=== PATIENT | female | born 2000 | race American Indian/Alaskan Native ===

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

== ENCOUNTER 2020-01-30 20:48 | Emergency (ER) | payer MEDICAID | END 2020-01-30 21:20 | disposition left against medical advice (07) | LOC: ED 20:48 | DX: R07.89 Other chest pain (principal); Z53.21 Procedure and treatment not carried out due to patient leaving prior to being seen by health care provider ==

== ENCOUNTER 2020-02-02 13:13 | Emergency (ER) | payer MEDICAID ==
[2020-02-02] MEDS ORDERED: ASPIRIN 325 MG TAB PO ONE (13:45)
[2020-02-02 14:19] LABS: Basophils # (Auto) 0.1 K/mm3 (0.0-0.1); Basophils % (Auto) 0.5 % (0.0-1.8); Eosinophils % (Auto) 0.4 % (0.0-4.3); Hematocrit 39.5 % (30.3-42.9); Hemoglobin 13.3 gm/dl (10.1-14.3); Lymphocytes # (Auto) 1.8 K/mm3 (1.2-5.4); Lymphocytes % (Auto) 16.8 % (13.4-35.0); Mean Corpuscular HGB Conc 34 % (30-34); Mean Corpuscular Volume 87 fl (79-97); Monocytes # (Auto) 0.9 K/mm3 (0.0-0.8); Monocytes % (Auto) 8.4 % (0.0-7.3); Platelet Count 422 K/mm3 (140-440); Red Blood Count 4.53 M/mm3 (3.65-5.03); Red Cell Distribution Width 15.1 % (13.2-15.2)
[2020-02-02 14:39] LABS: Blood Urea Nitrogen 4 mg/dL (7-17); Calcium 9.9 mg/dL (8.4-10.2); Hemolysis Index 6
[2020-02-02 14:47] LABS: Amphetamine Screen,Urine Negative; Bacteria,Urine 1+ /HPF (Negative); Benzodiazepines Screen,Urine Negative; Bilirubin,Urine NEG (Negative); Blood,Urine NEG (Negative); Cocaine Screen,Urine Negative; Color,Urine Amber (Yellow); Methadone Screen,Urine Negative; Mucus,Urine 3+ /HPF; Opiate Screen,Urine Negative
[2020-02-02 14:54] LABS: BUN/Creatinine Ratio 10
[2020-02-02 14:59] LABS: Cannabinoid Screen,Urine Positive
--- NOTE | 2020-02-02 15:14 | Emergency Department Report ---
[facility] <NESSA BOYCE - Last Filed: 02/02/20 22:51> - [facility] HPI: Room 18 The patient is a 19-year-old female present with a chief complaint of suicidal ideation chest pain and menorrhagia. The patient states she has had a intermittent chest pain for 2 years. Patient states she was told it was GERD. Patient states she has had pain on her right shoulder and neck for approximate 1 week. Patient denies any recent trauma. Patient states she has had pelvic cramping and this months she has had 3 episodes of vaginal bleeding. Patient is having delivered 07/24/2019. The patient is not breast-feeding. The patient states she has had suicidal ideation throughout her . The patient states last month she cut her arm and chest and yesterday she contemplated overdosing on Tylenol <BASIA CROWLEY - Last Filed: 02/03/20 19:33> - General Chief Complaint: Chest Pain Time Seen by Provider: 02/02/20 14:46 ED Past Medical Hx <NESSA BOYCE - Last Filed: 02/02/20 22:51> - Past Medical History Hx GERD: Yes Hx Psychiatric Treatment: (anxiety) Additional medical history: HEART MURMUR - Surgical History Past Surgical History?: No - Family History Family history: no significant - Social History Smoking Status: Never Smoker Substance Use Type: None (Denies illicit drug use) <BASIA CROWLEY - Last Filed: 02/03/20 19:33> - Medications Home Medications: Home Medications Medication Instructions Recorded Confirmed Last Taken Type No Known Home Medications [No 02/02/20 02/02/20 Unknown History Reported Home Medications] ED Review of Systems ROS: Stated complaint: N/V/BODY PAIN/CP/BLEEDING Other details as noted in HPI <NESSA BOYCE - Last Filed: 02/02/20 22:51> ROS: Stated complaint: N/V/BODY PAIN/CP/BLEEDING Other details as noted in HPI Constitutional: no symptoms reported Respiratory: no symptoms reported Cardiovascular: chest pain Endocrine: no symptoms reported Genitourinary: abnormal menses Psychiatric: suicidal thoughts <BASIA CROWLEY - Last Filed: 02/03/20 19:33> Physical Exam - Physical Exam Vital Signs: Vital Signs 02/02/20 13:37 Temperature 98.9 F Pulse Rate 109 H Respiratory 15 Rate Blood Pressure 139/93 O2 Sat by Pulse 100 Oximetry <NESSA BOYCE - Last Filed: 02/02/20 22:51> - Physical Exam Physical Exam: GENERAL: The patient is well-developed well-nourished female sitting on stretcher not appearing to be in acute distress. [] HEENT: Normocephalic. Atraumatic. Extraocular motions are intact. Patient has moist mucous membranes. NECK: Supple. Trachea midline CHEST/LUNGS: Clear to auscultation. There is no respiratory distress noted. HEART/CARDIOVASCULAR: Regular. There is no tachycardia. There is no gallop rub or murmur. ABDOMEN: Abdomen is soft, nontender. Patient has normal bowel sounds. There is no abdominal distention. SKIN: There is no rash. There is no edema. There is no diaphoresis. NEURO: The patient is awake, alert, and oriented. The patient is cooperative. The patient has normal speech MUSCULOSKELETAL: There is no evidence of acute injury. <BASIA CROWLEY - Last Filed: 02/03/20 19:33> ED Course Vital Signs 02/02/20 13:37 Temperature 98.9 F Pulse Rate 109 H Respiratory 15 Rate Blood Pressure 139/93 O2 Sat by Pulse 100 Oximetry <NESSA BOYCE - Last Filed: 02/02/20 22:51> - EJ/Peripheral Line Neck L Time Out Performed: Yes Indications: nurses unable to establis Skin Cleansed in Sterile Fashion: Yes Size: 20 Dressing Placed: Tegaderm Patient Tolerated Procedure: no complications <BASIA CROWLEY - Last Filed: 02/03/20 19:33> ED Medical Decision Making - Lab Data Result diagrams: 02/02/20 13:57 02/02/20 13:57 - Radiology Data NUCLEAR MEDICINE PERFUSION ONLY LUNG SCAN History: Chest pain Comparison: No prior nuclear medicine lung scan. Prior chest radiograph dated 02/02/2020. Procedure: The patient was administered 5.0 mCi of technetium 99m labeled MAA intravenously. Findings: No focal segmental defects are seen on perfusion imaging. Impression: Low probability for pulmonary embolism. - Medical Decision Making Patient signed out to me by Dr. Crowley that patient is medically clear pending V/Q examination. V/Q shows low probability for pulmonary embolism. Transfer form signed so that patient may go to inpatient psych facility. <BOYCENESSA Tiffanie - Last Filed: 02/02/20 22:51> - Lab Data Result diagrams: 02/02/20 13:57 02/02/20 13:57 Laboratory Tests 02/02/20 02/02/20 02/02/20 13:57 13:57 13:57 WBC 11.0 RBC 4.53 Hgb 13.3 Hct 39.5 MCV 87 MCH 29 MCHC 34 RDW 15.1 Plt Count 422 Lymph % (Auto) 16.8 [place] % (Auto) 8.4 H Eos % (Auto) 0.4 Baso % (Auto) 0.5 Lymph # (Auto) 1.8 [place] # (Auto) 0.9 H Eos # (Auto) 0.0 Baso # (Auto) 0.1 Seg Neutrophils % 73.9 H Seg Neutrophils # 8.1 H D-Dimer Sodium Potassium Chloride Carbon Dioxide Anion Gap BUN Creatinine Estimated GFR BUN/Creatinine Ratio Glucose Calcium Troponin T HCG, Quant Urine Color Urine Turbidity Urine pH Ur Specific [place] Urine Protein Urine Glucose (UA) Urine Ketones Urine Blood Urine Nitrite Urine Bilirubin Urine Urobilinogen Ur Leukocyte Esterase Urine WBC (Auto) Urine RBC (Auto) U Epithel Cells (Auto) Urine Bacteria (Auto) Urine Mucus Salicylates < 0.3 L Urine Opiates Screen Urine Methadone Screen Acetaminophen 5.0 L Ur Barbiturates Screen Ur Phencyclidine Scrn Ur Amphetamines Screen U Benzodiazepines Scrn Urine Cocaine Screen U Marijuana (THC) Screen Drugs of Abuse Note Plasma/Serum Alcohol 02/02/20 02/02/20 02/02/20 13:57 13:57 14:16 WBC RBC Hgb Hct MCV MCH MCHC RDW Plt Count Lymph % (Auto) [place] % (Auto) Eos % (Auto) Baso % (Auto) Lymph # (Auto) [place] # (Auto) Eos # (Auto) Baso # (Auto) Seg Neutrophils % Seg Neutrophils # D-Dimer Sodium 136 L Potassium 4.8 Chloride 96.7 L Carbon Dioxide 26 Anion Gap 18 BUN 4 L Creatinine 0.4 L Estimated GFR > 60 BUN/Creatinine Ratio 10 Glucose 96 Calcium 9.9 Troponin T < 0.010 HCG, Quant Urine Color Christine Urine Turbidity Clear Urine pH 6.0 Ur Specific [place] 1.027 Urine Protein 100 mg/dl Urine Glucose (UA) Neg Urine Ketones 80 Urine Blood Neg Urine Nitrite Neg Urine Bilirubin Neg Urine Urobilinogen 4.0 Ur Leukocyte Esterase Neg Urine WBC (Auto) 5.0 Urine RBC (Auto) 2.0 U Epithel Cells (Auto) 1.0 Urine Bacteria (Auto) 1+ Urine Mucus 3+ Salicylates Urine Opiates Screen Urine Methadone Screen Acetaminophen Ur Barbiturates Screen Ur Phencyclidine Scrn Ur Amphetamines Screen U Benzodiazepines Scrn Urine Cocaine Screen U Marijuana (THC) Screen Drugs of Abuse Note Plasma/Serum Alcohol < 0.01 02/02/20 02/02/20 02/02/20 14:16 15:09 15:09 WBC RBC Hgb Hct MCV MCH MCHC RDW Plt Count Lymph % (Auto) [place] % (Auto) Eos % (Auto) Baso % (Auto) Lymph # (Auto) [place] # (Auto) Eos # (Auto) Baso # (Auto) Seg Neutrophils % Seg Neutrophils # D-Dimer 755.70 H Sodium Potassium Chloride Carbon Dioxide Anion Gap BUN Creatinine Estimated GFR BUN/Creatinine Ratio Glucose Calcium Troponin T HCG, Quant < 2 Urine Color Urine Turbidity Urine pH Ur Specific [place] Urine Protein Urine Glucose (UA) Urine Ketones Urine Blood Urine Nitrite Urine Bilirubin Urine Urobilinogen Ur Leukocyte Esterase Urine WBC (Auto) Urine RBC (Auto) U Epithel Cells (Auto) Urine Bacteria (Auto) Urine Mucus Salicylates Urine Opiates Screen Negative Urine Methadone Screen Negative Acetaminophen Ur Barbiturates Screen Negative Ur Phencyclidine Scrn Negative Ur Amphetamines Screen Negative U Benzodiazepines Scrn Negative Urine Cocaine Screen Negative U Marijuana (THC) Screen Positive Drugs of Abuse Note Disclamer Plasma/Serum Alcohol 02/02/20 16:06 WBC RBC Hgb Hct MCV MCH MCHC RDW Plt Count Lymph % (Auto) [place] % (Auto) Eos % (Auto) Baso % (Auto) Lymph # (Auto) [place] # (Auto) Eos # (Auto) Baso # (Auto) Seg Neutrophils % Seg Neutrophils # D-Dimer Sodium Potassium Chloride Carbon Dioxide Anion Gap BUN Creatinine Estimated GFR BUN/Creatinine Ratio Glucose Calcium Troponin T < 0.010 HCG, Quant Urine Color Urine Turbidity Urine pH Ur Specific [place] Urine Protein Urine Glucose (UA) Urine Ketones Urine Blood Urine Nitrite Urine Bilirubin Urine Urobilinogen Ur Leukocyte Esterase Urine WBC (Auto) Urine RBC (Auto) U Epithel Cells (Auto) Urine Bacteria (Auto) Urine Mucus Salicylates Urine Opiates Screen Urine Methadone Screen Acetaminophen Ur Barbiturates Screen Ur Phencyclidine Scrn Ur Amphetamines Screen U Benzodiazepines Scrn Urine Cocaine Screen U Marijuana (THC) Screen Drugs of Abuse Note Plasma/Serum Alcohol - EKG Data -: EKG Interpreted by Me EKG shows normal: sinus rhythm Rate: normal - EKG Data When compared to previous EKG there are: no significant change, previous EKG unavailable Interpretation: unchanged when compared t (06/14/2019) - Radiology Data Radiology results: report reviewed (Pelvic ultrasound, chest x-ray), image reviewed (Pelvic ultrasound, chest x-ray) interpreted by me: Chest x-ray-no focal infiltrates, no pneumothorax Findings [address] [address] Ultrasound Report Signed Patient: SALLY BELL MR#: [id number] : 2000 Acct:[id number] Age/Sex: 19 / F ADM Date: 02/02/20 Loc: ED Atte nding Dr: Ordering Physician: BASIA CROWLEY MD Date of Service: 02/02/20 Procedure(s): US pelvic complete Accession Number(s): [id number] cc: BASIA CROWLEY MD US pelvic complete INDICATION / CLINICAL INFORMATION: Irregular vaginal bleeding. COMPARISON: None available. FINDINGS: Uterus and both ovaries appear negative. Endometrial stripe measures 6 mm in thickness. No free fluid. IMPRESSION: 1. No significant abnormality. Signer Name: Rc Siddiqui MD Signed: 02/02/2020 7:10 PM Workstation Name: [id number] Transcribed By: TM Dictated By: Rc Siddiqui MD Electronically Authenticated By: Rc Siddiqui MD Signed Date/Time: 02/02/201909 DD/ 08 TD/TT: Findings [address] [address] XRay Report Signed Patient: SALLY BELL MR#: [id number] : 2000 Acct:[id number] Age/Sex: 19 / F ADM Date: 02/02/20 Loc: ED Attending Dr: Ordering Physician: BASIA CROWLEY MD Date of Service: 02/02/20 Procedure(s): XR chest 1V ap Accession Number(s): [id number] cc: BASIA CROWLEY MD Fluoro Time In Minutes: CHEST 1 VIEW 02/02/2020 3:38 PM INDICATION / CLINICAL INFORMATION: Chest Pain. COMPARISON: 07/24/19 FINDINGS: SUPPORT DEVICES: None. HEART / MEDIASTINUM: No significant abnormality. LUNGS / PLEURA: No significant pulmonary or pleural abnormality. No pneumothorax. ADDITIONAL FINDINGS: No significant additional findings. IMPRESSION: 1. No acute findings. Signer Name: Mariel Barrow MD Signed: 02/02/2020 4:40 PM Workstation Name: [id number] Transcribed By: DT Dictated By: Greg Barrow MD Electronically Authenticated By: Greg Barrow MD Signed Date/Time: 02/02/201639 DD/ 39 TD/TT: - Differential Diagnosis Suicidal ideation, GERD, pericarditis, PE <BASIA CROWLEY K - Last Filed: 02/03/20 19:33> Critical care attestation.: If time is entered above; I have spent that time in minutes in the direct care of this critically ill patient, excluding procedure time. <NESSA BOYCE - Last Filed: 02/02/20 22:51> Critical care attestation.: If time is entered above; I have spent that time in minutes in the direct care of this critically ill patient, excluding procedure time. <BASIA CROWLEY - Last Filed: 02/03/20 19:33> ED Disposition <NESSA BOYCE - Last Filed: 02/02/20 22:51> Is pt being admited?: No Does the pt Need Aspirin: No <BASIA CROWLEY - Last Filed: 02/03/20 19:33> Clinical Impression: Suicidal ideation Disposition: DC/[facility]/PSY UNIT Condition: Stable Referrals: LEWIS SHAHID MD [Primary Care Provider] - 3-5 Days
--- NOTE | 2020-02-02 16:45 | XRay Report ---
CHEST 1 VIEW 02/02/2020 3:38 PM INDICATION / CLINICAL INFORMATION: Chest Pain. COMPARISON: 07/24/19 FINDINGS: SUPPORT DEVICES: None. HEART / MEDIASTINUM: No significant abnormality. LUNGS / PLEURA: No significant pulmonary or pleural abnormality. No pneumothorax. ADDITIONAL FINDINGS: No significant additional findings. IMPRESSION: 1. No acute findings. Signer Name: Mariel Barrow MD Signed: 02/02/2020 4:40 PM Workstation Name: [id number]
--- NOTE | 2020-02-02 19:15 | Ultrasound Report ---
US pelvic complete INDICATION / CLINICAL INFORMATION: Irregular vaginal bleeding. COMPARISON: None available. FINDINGS: Uterus and both ovaries appear negative. Endometrial stripe measures 6 mm in thickness. No free fluid . IMPRESSION: 1. No significant abnormality. Signer Name: Rc Siddiqui MD Signed: 02/02/2020 7:10 PM Workstation Name: [id number]
[2020-02-02 20:55] VITALS: BP 139/93
--- NOTE | 2020-02-02 22:17 | Nuclear Medicine Report ---
NUCLEAR MEDICINE PERFUSION ONLY LUNG SCAN History: Chest pain Comparison: No prior nuclear medicine lung scan. Prior chest radiograph dated 02/02/2020. Procedure: The patient was administered 5.0 mCi of technetium 99m labeled MAA intravenously. Findings: No focal segmental defects are seen on perfusion imaging. Impression: Low probability for pulmonary embolism. Signer Name: Jac Ribera MD Signed: 02/02/2020 10:13 PM Workstation Name: [id number]
== END 2020-02-03 00:10 ==
LOC: ED 13:13
DX: R45.851 Suicidal ideations (principal); R07.89 Other chest pain; K21.9 Gastro-esophageal reflux disease without esophagitis; F41.9 Anxiety disorder, unspecified
CPT/HCPCS: 36415; 36556; 71045; 76856; 78580; 80048; 80307; 81001; 84484; 84702; 85025; 85379; 93005; 99285; A9540; 80320; G0480

== ENCOUNTER 2020-07-21 18:01 | Emergency (ER) | payer MEDICAID ==
[2020-07-21] MEDS ORDERED: LORazepam 1 MG TAB PO ONE (18:15)
--- NOTE | 2020-07-21 18:27 | Event Note ---
ED Screening Note Date of service: 07/21/20 Time: 18:26 ED Screening Note: Patient presents with complaints of anxiety and hearing voices today Denies SI/HI Patient nervous and shaking in triage Actively crying This initial assessment/diagnostic orders/clinical plan/treatment(s) is/are subject to change based on patients health status, clinical progression and re- assessment by fellow clinical providers in the ED. Further treatment and workup at subsequent clinical providers discretion. Patient/guardian urged not to elope from the ED as their condition may be serious if not clinically assessed and managed. Initial orders include: Ativan p.o. given Labs Mental health eval
[2020-07-21 19:05] LABS: Bacteria,Urine 2+ /HPF (Negative); Bilirubin,Urine NEG (Negative); Blood,Urine NEG (Negative); Color,Urine Yellow (Yellow); Mucus,Urine 3+ /HPF
[2020-07-21 19:13] LABS: Amphetamine Screen,Urine Negative; Benzodiazepines Screen,Urine Negative; Cocaine Screen,Urine Negative; Methadone Screen,Urine Negative; Opiate Screen,Urine Negative
[2020-07-21 19:14] LABS: Basophils # (Auto) 0.1 K/mm3 (0.0-0.1); Basophils % (Auto) 0.8 % (0.0-1.8); Eosinophils % (Auto) 0.2 % (0.0-4.3); Hematocrit 45.8 % (30.3-42.9); Hemoglobin 15.1 gm/dl (10.1-14.3); Lymphocytes # (Auto) 2.1 K/mm3 (1.2-5.4); Lymphocytes % (Auto) 20.4 % (13.4-35.0); Mean Corpuscular HGB Conc 33 % (30-34); Mean Corpuscular Volume 92 fl (79-97); Monocytes # (Auto) 0.6 K/mm3 (0.0-0.8); Platelet Count 300 K/mm3 (140-440); Red Cell Distribution Width 14.8 % (13.2-15.2)
[2020-07-21 19:24] LABS: Alanine Aminotransferase 11 units/L (7-56); Albumin 4.7 g/dL (3.9-5); Blood Urea Nitrogen 6 mg/dL (7-17); Hemolysis Index 14
[2020-07-21 19:25] LABS: Cannabinoid Screen,Urine Positive
[2020-07-21 19:26] LABS: BUN/Creatinine Ratio 12
[2020-07-22 01:04] VITALS: BP 118/77
--- NOTE | 2020-07-22 01:22 | Emergency Department Report ---
ED General Adult HPI - General Chief complaint: Psych Stated complaint: DEPRESSION Time Seen by Provider: 07/21/20 18:10 Source: patient Mode of arrival: Ambulatory Limitations: No Limitations - History of Present Illness Initial comments: The patient presents to the emergency department with a chief complaint of depression as well as panic attacks. Patient states that she has been severely depressed over the last year since the of her son on July. Patient states during her she was taking medications for anxiety and depression but has not taken medication since his . Patient states that she is having panic attacks almost daily and feels like she is going to when she is having them. Patient states she is also hearing voices and initially states the voices have only been present for the last week but upon further discussion the voices have been present for quite some time. She states the voices are telling her mean things such as shut up, you are stupid, with the hell are you doing with herself. Patient denies suicidal homicidal ideations. Patient also complains about visual hallucinations as well but is very reluctant to discuss them with me. Otherwise the patient is very pleasant and very fo rthcoming. -: Gradual Severity scale (0 -10): 0 Consistency: constant Improves with: none Worsens with: none Associated Symptoms: denies other symptoms Treatments Prior to Arrival: none - Related Data Home Medications Medication Instructions Recorded Confirmed Last Taken No Known Home Medications [No 02/02/20 02/02/20 Unknown Reported Home Medications] Allergies Allergy/AdvReac Type Severity Reaction Status Date / Time No Known Allergies Allergy Verified 07/21/20 18:17 ED Review of Systems ROS: Stated complaint: DEPRESSION Other details as noted in HPI Comment: All other systems reviewed and negative Constitutional: denies: chills, fever Eyes: denies: eye pain, eye discharge, vision change ENT: denies: ear pain, throat pain Respiratory: denies: cough, shortness of breath, wheezing Cardiovascular: denies: chest pain, palpitations Endocrine: no symptoms reported Gastrointestinal: denies: abdominal pain, nausea, diarrhea Genitourinary: denies: urgency, dysuria, discharge Musculoskeletal: denies: back pain, joint swelling, arthralgia Skin: denies: rash, lesions Neurological: denies: headache, weakness, paresthesias Psychiatric: depression, auditory hallucinations, visual hallucinations. denies: anxiety, homicidal thoughts, suicidal thoughts Hematological/Lymphatic: denies: easy bleeding, easy bruising ED Past Medical Hx - Past Medical History Hx GERD: Yes Hx Renal Disease: No Hx Sickle Cell Disease: No Hx Seizures: No Hx Psychiatric Treatment: (anxiety) Additional medical history: HEART MURMUR - Social History Smoking Status: Never Smoker Substance Use Type: None - Medications Home Medications: Home Medications Medication Instructions Recorded Confirmed Last Taken Type No Known Home Medications [No 02/02/20 02/02/20 Unknown History Reported Home Medications] ED Physical Exam - General Limitations: No Limitations General appearance: alert, in no apparent distress - Head Head exam: Present: atraumatic, normocephalic - Eye Eye exam: Present: normal appearance, PERRL, EOMI - ENT ENT exam: Present: mucous membranes moist - Neck Neck exam: Present: normal inspection - Respiratory Respiratory exam: Present: normal lung sounds bilaterally. Absent: respiratory distress - Cardiovascular Cardiovascular Exam: Present: regular rate, normal rhythm. Absent: systolic murmur, diastolic murmur, rubs, gallop - GI/Abdominal GI/Abdominal exam: Present: soft, normal bowel sounds. Absent: distended, tenderness - Extremities Exam Extremities exam: Present: normal inspection - Back Exam Back exam: Present: normal inspection - Neurological Exam Neurological exam: Present: alert, oriented X3, CN II-XII intact. Absent: motor sensory deficit - Psychiatric Psychiatric exam: Present: depressed, flat affect - Skin Skin exam: Present: warm, dry, intact, normal color. Absent: rash ED Course Vital Signs 07/22/20 07/22/20 07/22/20 00:31 00:32 01:03 Temperature 98.5 F 98.5 F Pulse Rate 75 77 Respiratory 16 16 17 Rate Blood Pressure 118/76 118/77 [Left] O2 Sat by Pulse 97 97 98 Oximetry ED Medical Decision Making - Lab Data Result diagrams: 07/21/20 18:33 07/21/20 18:33 Lab Results 07/21/20 07/21/20 07/21/20 Range/Units 18:33 18:33 18:33 WBC 10.1 (4.5-11.0) K/mm3 RBC 5.00 (3.65-5.03) M/mm3 Hgb 15.1 H (10.1-14.3) gm/dl Hct 45.8 H (30.3-42.9) % MCV 92 (79-97) fl MCH 30 (28-32) pg MCHC 33 (30-34) % RDW 14.8 (13.2-15.2) % Plt Count 300 (140-440) K/mm3 Lymph % (Auto) 20.4 (13.4-35.0) % [place] % (Auto) 6.0 (0.0-7.3) % Eos % (Auto) 0.2 (0.0-4.3) % Baso % (Auto) 0.8 (0.0-1.8) % Lymph # (Auto) 2.1 (1.2-5.4) K/mm3 [place] # (Auto) 0.6 (0.0-0.8) K/mm3 Eos # (Auto) 0.0 (0.0-0.4) K/mm3 Baso # (Auto) 0.1 (0.0-0.1) K/mm3 Seg Neutrophils % 72.6 H (40.0-70.0) % Seg Neutrophils # 7.3 (1.8-7.7) K/mm3 Sodium 137 (137-145) mmol/L Potassium 3.8 (3.6-5.0) mmol/L Chloride 100.9 (98-107) mmol/L Carbon Dioxide 24 (22-30) mmol/L Anion Gap 16 mmol/L BUN 6 L (7-17) mg/dL Creatinine 0.5 L (0.6-1.2) mg/dL Estimated GFR > 60 ml/min BUN/Creatinine Ratio 12 % Glucose 108 H (65-100) mg/dL Calcium 10.0 (8.4-10.2) mg/dL Total Bilirubin 0.60 (0.1-1.2) mg/dL AST 19 (5-40) units/L ALT 11 (7-56) units/L Alkaline Phosphatase 69 (35-129) units/L Total Protein 7.9 (6.3-8.2) g/dL Albumin 4.7 (3.9-5) g/dL Albumin/Globulin Ratio 1.5 % HCG, Qual (Negative) Urine Color (Yellow) Urine Turbidity (Clear) Urine pH (5.0-7.0) Ur Specific [place] (1.003-1.030) Urine Protein (Negative) mg/dL Urine Glucose (UA) (Negative) mg/dL Urine Ketones (Negative) mg/dL Urine Blood (Negative) Urine Nitrite (Negative) Urine Bilirubin (Negative) Urine Urobilinogen (<2.0) mg/dL Ur Leukocyte Esterase (Negative) Urine WBC (Auto) (0.0-6.0) /HPF Urine RBC (Auto) (0.0-6.0) /HPF U Epithel Cells (Auto) (0-13.0) /HPF Urine Bacteria (Auto) (Negative) /HPF Urine Mucus /HPF Salicylates < 0.3 L (2.8-20.0) mg/dL Urine Opiates Screen Urine Methadone Screen Acetaminophen (10.0-30.0) ug/mL Ur Barbiturates Screen Ur Phencyclidine Scrn Ur Amphetamines Screen U Benzodiazepines Scrn Urine Cocaine Screen U Marijuana (THC) Screen Drugs of Abuse Note Plasma/Serum Alcohol (0-0.07) % 07/21/20 07/21/20 07/21/20 Range/Units 18:33 18:33 18:33 WBC (4.5-11.0) K/mm3 RBC (3.65-5.03) M/mm3 Hgb (10.1-14.3) gm/dl Hct (30.3-42.9) % MCV (79-97) fl MCH (28-32) pg MCHC (30-34) % RDW (13.2-15.2) % Plt Count (140-440) K/mm3 Lymph % (Auto) (13.4-35.0) % [place] % (Auto) (0.0-7.3) % Eos % (Auto) (0.0-4.3) % Baso % (Auto) (0.0-1.8) % Lymph # (Auto) (1.2-5.4) K/mm3 [place] # (Auto) (0.0-0.8) K/mm3 Eos # (Auto) (0.0-0.4) K/mm3 Baso # (Auto) (0.0-0.1) K/mm3 Seg Neutrophils % (40.0-70.0) % Seg Neutrophils # (1.8-7.7) K/mm3 Sodium (137-145) mmol/L Potassium (3.6-5.0) mmol/L Chloride (98-107) mmol/L Carbon Dioxide (22-30) mmol/L Anion Gap mmol/L BUN (7-17) mg/dL Creatinine (0.6-1.2) mg/dL Estimated GFR ml/min BUN/Creatinine Ratio % Glucose (65-100) mg/dL Calcium (8.4-10.2) mg/dL Total Bilirubin (0.1-1.2) mg/dL AST (5-40) units/L ALT (7-56) units/L Alkaline Phosphatase (35-129) units/L Total Protein (6.3-8.2) g/dL Albumin (3.9-5) g/dL Albumin/Globulin Ratio % HCG, Qual Negative (Negative) Urine Color (Yellow) Urine Turbidity (Clear) Urine pH (5.0-7.0) Ur Specific [place] (1.003-1.030) Urine Protein (Negative) mg/dL Urine Glucose (UA) (Negative) mg/dL Urine Ketones (Negative) mg/dL Urine Blood (Negative) Urine Nitrite (Negative) Urine Bilirubin (Negative) Urine Urobilinogen (<2.0) mg/dL Ur Leukocyte Esterase (Negative) Urine WBC (Auto) (0.0-6.0) /HPF Urine RBC (Auto) (0.0-6.0) /HPF U Epithel Cells (Auto) (0-13.0) /HPF Urine Bacteria (Auto) (Negative) /HPF Urine Mucus /HPF Salicylates (2.8-20.0) mg/dL Urine Opiates Screen Urine Methadone Screen Acetaminophen 5.0 L (10.0-30.0) ug/mL Ur Barbiturates Screen Ur Phencyclidine Scrn Ur Amphetamines Screen U Benzodiazepines Scrn Urine Cocaine Screen U Marijuana (THC) Screen Drugs of Abuse Note Plasma/Serum Alcohol < 0.01 (0-0.07) % 07/21/20 07/21/20 Range/Units Unknown Unknown WBC (4.5-11.0) K/mm3 RBC (3.65-5.03) M/mm3 Hgb (10.1-14.3) gm/dl Hct (30.3-42.9) % MCV (79-97) fl MCH (28-32) pg MCHC (30-34) % RDW (13.2-15.2) % Plt Count (140-440) K/mm3 Lymph % (Auto) (13.4-35.0) % [place] % (Auto) (0.0-7.3) % Eos % (Auto) (0.0-4.3) % Baso % (Auto) (0.0-1.8) % Lymph # (Auto) (1.2-5.4) K/mm3 [place] # (Auto) (0.0-0.8) K/mm3 Eos # (Auto) (0.0-0.4) K/mm3 Baso # (Auto) (0.0-0.1) K/mm3 Seg Neutrophils % (40.0-70.0) % Seg Neutrophils # (1.8-7.7) K/mm3 Sodium (137-145) mmol/L Potassium (3.6-5.0) mmol/L Chloride (98-107) mmol/L Carbon Dioxide (22-30) mmol/L Anion Gap mmol/L BUN (7-17) mg/dL Creatinine (0.6-1.2) mg/dL Estimated GFR ml/min BUN/Creatinine Ratio % Glucose (65-100) mg/dL Calcium (8.4-10.2) mg/dL Total Bilirubin (0.1-1.2) mg/dL AST (5-40) units/L ALT (7-56) units/L Alkaline Phosphatase (35-129) units/L Total Protein (6.3-8.2) g/dL Albumin (3.9-5) g/dL Albumin/Globulin Ratio % HCG, Qual (Negative) Urine Color Yellow (Yellow) Urine Turbidity Slightly-cloudy (Clear) Urine pH 6.0 (5.0-7.0) Ur Specific [place] 1.023 (1.003-1.030) Urine Protein 30 mg/dl (Negative) mg/dL Urine Glucose (UA) Neg (Negative) mg/dL Urine Ketones 20 (Negative) mg/dL Urine Blood Neg (Negative) Urine Nitrite Neg (Negative) Urine Bilirubin Neg (Negative) Urine Urobilinogen 4.0 (<2.0) mg/dL Ur Leukocyte Esterase Tr (Negative) Urine WBC (Auto) 3.0 (0.0-6.0) /HPF Urine RBC (Auto) 6.0 (0.0-6.0) /HPF U Epithel Cells (Auto) 14.0 H (0-13.0) /HPF Urine Bacteria (Auto) 2+ (Negative) /HPF Urine Mucus 3+ /HPF Salicylates (2.8-20.0) mg/dL Urine Opiates Screen Negative Urine Methadone Screen Negative Acetaminophen (10.0-30.0) ug/mL Ur Barbiturates Screen Negative Ur Phencyclidine Scrn Negative Ur Amphetamines Screen Negative U Benzodiazepines Scrn Negative Urine Cocaine Screen Negative U Marijuana (THC) Screen Positive Drugs of Abuse Note Disclamer Plasma/Serum Alcohol (0-0.07) % - Medical Decision Making Patient is medically clear ED hold place Awaiting mental health evaluation Critical care attestation.: If time is entered above; I have spent that time in minutes in the direct care of this critically ill patient, excluding procedure time. ED Disposition Clinical Impression: Depression, Anxiety, Auditory hallucination Disposition: DC/TX-65 PSY HOSP/PSY UNIT Is pt being admited?: No Does the pt Need Aspirin: No Condition: Stable Referrals: PRIMARY CARE, [Primary Care Provider] - 3-5 Days
== END 2020-07-22 01:45 ==
LOC: ED 18:01
DX: F41.9 Anxiety disorder, unspecified (principal); F32.9 Major depressive disorder, single episode, unspecified; R44.0 Auditory hallucinations; K21.9 Gastro-esophageal reflux disease without esophagitis
CPT/HCPCS: 36415; 80053; 80307; 80320; 81001; 84703; 85025; G0480

== ENCOUNTER 2021-08-07 12:25 | Emergency (ER) | payer MEDICAID ==
[2021-08-07 14:47] VITALS: BP 122/85
[2021-08-07] MEDS ORDERED: diphenhydrAMINE 50 MG/ML VIAL IV ONE (16:29)
[2021-08-07] MEDS ORDERED: SODIUM CHLORIDE 0.9% 1000 ML 1,000 ML IV ONE (16:29)
[2021-08-07] MEDS ORDERED: METOCLOPRAMIDE 10 MG/2 ML INJ IV ONE (16:29)
[2021-08-07 17:10] LABS: Bilirubin,Urine NEG (Negative); Blood,Urine NEG (Negative); Color,Urine Yellow (Yellow); Mucus,Urine FEW /HPF; Protein,Urine <15 mg/dL mg/dL (Negative)
[2021-08-07 17:21] LABS: Alanine Aminotransferase 24 units/L (7-56); Albumin 4.4 g/dL (3.9-5); Blood Urea Nitrogen 4 mg/dL (7-17); Calcium 9.2 mg/dL (8.4-10.2); Hemolysis Index 7
[2021-08-07 17:22] LABS: BUN/Creatinine Ratio 10
[2021-08-07 17:39] LABS: Basophils % (Auto) 0.3 % (0.0-1.8); Eosinophils % (Auto) 0.2 % (0.0-4.3); Hematocrit 41.1 % (30.3-42.9); Hemoglobin 14.4 gm/dl (10.1-14.3); Lymphocytes # (Auto) 1.6 K/mm3 (1.2-5.4); Lymphocytes % (Auto) 16.7 % (13.4-35.0); Mean Corpuscular HGB Conc 35 % (30-34); Mean Corpuscular Volume 89 fl (79-97); Monocytes # (Auto) 0.5 K/mm3 (0.0-0.8); Monocytes % (Auto) 5.7 % (0.0-7.3); Platelet Count 302 K/mm3 (140-440); Red Blood Count 4.62 M/mm3 (3.65-5.03); Red Cell Distribution Width 13.8 % (13.2-15.2)
--- NOTE | 2021-08-07 19:43 | Ultrasound Report ---
US OB <= 14 weeks fetus INDICATION / CLINICAL INFORMATION: , n/v, 1st ultrasound. TECHNIQUE: Transabdominal. COMPARISON: None available. FINDINGS: UTERUS: Appears within normal limits. GESTATIONAL SAC: Well-defined oval shape and intrauterine in location. EMBRYO/FETUS: - Crump-Rump Length = 0.25 cm - Heart Rate, beats per minute (if present) = 102 beats per minute ADNEXA: No significant abnormality. FREE FLUID: None. ADDITIONAL FINDINGS: None. IMPRESSION: 1. Single, living intrauterine with estimated sonographic age of 5 weeks 6 days. Signer Name: Gurjit Banegas MD Signed: 08/07/2021 7:39 PM Workstation Name: [id number]
--- NOTE | 2021-08-07 19:56 | Emergency Department Report ---
ED N/V/D HPI - General Chief complaint: Nausea/Vomiting/Diarrhea Stated complaint: NOT FEELING GOOD Time Seen by Provider: 08/07/21 16:20 Source: patient Mode of arrival: Ambulatory Limitations: No Limitations - History of Present Illness Initial comments: Patient is a 21-year-old female presents emergency room complaints of nausea, vomiting, diarrhea that began 3 days ago. She denies any abdominal pain, back pain, vaginal bleeding, dysuria, hematuria, hematochezia, melena, hematemesis. She reports that she took [id number] test and states it was positive. She states her last menstrual cycle was June 26, 2021. She has not seen anyone to confirm this and has not had an ultrasound. No allergies to medications. /P: 2/A: 0 - Related Data Previous Rx's Medication Instructions Recorded Last Taken Type Metoclopramide [Reglan] 10 mg PO Q8HR PRN #15 tab 08/07/21 Unknown Rx Allergies Allergy/AdvReac Type Severity Reaction Status Date / Time No Known Allergies Allergy Verified 07/21/20 18:17 ED Review of Systems ROS: Stated complaint: NOT FEELING GOOD Other details as noted in HPI Comment: All other systems reviewed and negative ED Past Medical Hx - Past Medical History Hx GERD: Yes Hx Renal Disease: No Hx Sickle Cell Disease: No Hx Seizures: No Hx Psychiatric Treatment: (anxiety) Additional medical history: HEART MURMUR - Social History Smoking Status: Never Smoker Substance Use Type: None - Medications Home Medications: Home Medications Medication Instructions Recorded Confirmed Last Taken Type Metoclopramide [Reglan] 10 mg PO Q8HR PRN #15 tab 08/07/21 Unknown Rx ED Physical Exam - General Limitations: No Limitations General appearance: alert, in no apparent distress - Head Head exam: Present: atraumatic, normocephalic - Eye Eye exam: Present: normal appearance - ENT ENT exam: Present: mucous membranes moist - Respiratory Respiratory exam: Present: normal lung sounds bilaterally. Absent: respiratory distress, wheezes, rales, rhonchi, stridor, chest wall tenderness, accessory muscle use, decreased breath sounds, prolonged expiratory - Cardiovascular Cardiovascular Exam: Present: regular rate, normal rhythm, normal heart sounds. Absent: systolic murmur, diastolic murmur, rubs, gallop - GI/Abdominal GI/Abdominal exam: Present: soft, normal bowel sounds. Absent: distended, ten derness, guarding, rebound, rigid - Neurological Exam Neurological exam: Present: alert, oriented X3 - Psychiatric Psychiatric exam: Present: normal affect, normal mood - Skin Skin exam: Present: warm, dry, intact ED Course Vital Signs 08/07/21 14:46 Temperature 98.0 F Pulse Rate 74 Respiratory 17 Rate Blood Pressure 122/85 O2 Sat by Pulse 100 Oximetry ED Medical Decision Making - Lab Data Result diagrams: 08/07/21 16:36 08/07/21 16:36 - Radiology Data Radiology results: report reviewed Ordering Physician: MELISSA CORDOVA Date of Service: 08/07/21 Procedure(s): US OB <= 14 weeks fetus Accession Number(s): [id number] cc: MELISSA CORDOVA US OB <= 14 weeks fetus INDICATION / CLINICAL INFORMATION: , n/v, 1st ultrasound. TECHNIQUE: Transabdominal. COMPARISON: None available. FINDINGS: UTERUS: Appears within normal limits. GESTATIONAL SAC: Well-defined oval shape and intrauterine in location. EMBRYO/FETUS: - Olive-Rump Length = 0.25 cm - Heart Rate, beats per minute (if present) = 102 beats per minute ADNEXA: No significant abnormality. FREE FLUID: None. ADDITIONAL FINDINGS: None. IMPRESSION: 1. Single, living intrauterine with estimated sonographic age of 5 weeks 6 days. Signer Name: Gurjit Banegas MD Signed: 08/07/2021 7:39 PM Workstation Name: [id number] Transcribed By: CS Dictated By: Gurjit Banegas MD Electronically Authenticated By: Gurjit Banegas MD Signed Date/Time: 08/07/211938 DD/ 36 TD/TT: - Medical Decision Making Patient is a 21-year-old female presents emergency room complaints of nausea, vomiting, diarrhea that began 3 days ago. She denies any abdominal pain, back pain, vaginal bleeding, dysuria, hematuria, hematochezia, melena, hematemesis. She reports that she took [id number] test and states it was positive. She states her last menstrual cycle was June 26, 2021. She has not seen anyone to confirm this and has not had an ultrasound. No all ergies to medications. /P: 2/A: 0. Vitals are normal. Patient has no abdominal tenderness on exam. [place] [address]. UA without evidence of UTI. Patient is having no vaginal bleeding or abdominal pain. Patient has not yet had a confirmed IUP. OB ultrasound shows 1. Single, living intrauterine with estimated sonographic age of 5 weeks 6 days. Patient given IV fluids and IV antiemetics and symptoms improved and she is feeling much better ready go home. She was able tolerate p.o. take without difficulty. advised pt Please take medication as prescribed as needed. Increase your fluid intake. Take a vitamin [id number]. Follow-up with [facility]. Follow-up with your primary care doctor. Return to emergency room for any new or worsening symptoms. Critical care attestation.: If time is entered above; I have spent that time in minutes in the direct care of this critically ill patient, excluding procedure time. ED Disposition Clinical Impression: Nausea vomiting and diarrhea Qualifiers: Weeks of gestation: less than 8 weeks Qualified Code(s): Z3A.01 - Less than 8 weeks gestation of Disposition: 01 HOME / SELF CARE / HOMELESS Is pt being admited?: No Does the pt Need Aspirin: No Condition: Stable Instructions: Diarrhea, Adult, First Trimester of , Ksfu-kc-Fiat, Nausea and Vomiting, Adult, Jtur-[id number] Additional Instructions: Please take medication as prescribed as needed. Increase your fluid intake. Take a vitamin [id number]. Follow-up with [facility]. Follow-up with your primary care doctor. Return to emergency room for any new or worsening symptoms. Prescriptions: Metoclopramide [Reglan] 10 mg PO Q8HR PRN #15 tab PRN Reason: vomiting Referrals: MELODIE PORTILLO MD [Primary Care Provider] - 3-5 Days STEPHANIE ESPOSITO MD [Staff Physician] - 3-5 Days Time of Disposition: 19:55 Print Language: CHINESE
== END 2021-08-07 20:07 | disposition home or self-care (01) ==
LOC: ED 12:26
DX: O21.8 Other vomiting complicating pregnancy (principal); R19.7 Diarrhea, unspecified; Z3A.01 Less than 8 weeks gestation of pregnancy; K21.9 Gastro-esophageal reflux disease without esophagitis; F41.9 Anxiety disorder, unspecified
CPT/HCPCS: 36415; 76801; 80053; 81001; 83690; 84702; 84703; 85025; 96361; 96374; 96375; 99284; J1200; J2765; J7030; Q0162